=== PATIENT | male | born 1985 ===

== ENCOUNTER 2021-11-07 21:41 | Emergency (ER) | payer SELFPAY ==
--- OUTSIDE RECORDS SUMMARY | 2021-11-07 21:46 | XMS REPORT | Continuity of Care Document ---
:1985 Author Organization [facility] t Address [address] [place] [address] Care Team Providers Name Role Phone PCP, PATIENT DOES NOT HAVE A Primary Care Physician Unavaila Brandyn Brewer Attending Clinician Unavailable EUSEBIO ARANDA Attending Clinician Unavailable Caro Rivas DO Attending Clinician CARO RIVAS Attending Clinician Unavailable LEW GORDON Attending Clinician Unavailable REYNA YING Attending Clinician Unavailable NATE KNOX Attending Clinician Unavailable Physician, No Primary or Family Admitting Clinician UnavailCARO Matos Admitting Clinician Unavailable Payers Payer Name Policy Type Policy Number Effective Date Expiration Date S ource Problems Condition Condition Condition Status Onset Resolution Last Treating Co mments Source Name Details Category Date Date Treatment Clinician Date Subarachno Subarachno Disease Active U nivers id id 8-16 [place] [facility] Other, Other, Disease Active Univers mixed, or mixed, or 16 it[place] of unspecifie [place] Medical nondepende nondepende Br anch nt drug nt drug abuse, abuse, unspecifie unspecifie d d Alcohol Alcohol Disease Active Univers abuse, abuse, 16 ity of episodic episodic 00:00: [place] 00 Medical Branch Orbital Orbital Disease Active Univers edema or edema or 16 [place] Allergies, Adverse Reactions, Alerts Allergy Allergy Status Severity Reaction(s) Onset Inactive Treating Comm ents Source Name Type Date Date Clinician emely FA Active U UNKNOWN [facility] nt 07-18 [place] 00:00: [facility] 00 are [place] Cat Propensi Active Other - See Uni vers Dander ty to comments 2-16 ity of adverse 00:00: [place] reaction 00 Medical s Branch Dog Propensi Active Other - See Uni vers Dander ty to comments 2-16 ity of adverse 00:00: [place] reaction 00 Medical s Branch CAT DRUG Active Other-Cmnt Univer s DANDER INGREDI 2-16 ity of 00:00: [place] 00 Medical Branch DOG DRUG Active Other-Cmnt Univer s DANDER INGREDI 2-16 ity of 00:00: [place] 00 Medical Branch Social History Social Habit Start Date Stop Date Quantity Comments Source History of Cigarette Smoker Universi ty of tobacco use [facility] Exposure to 2021-07-07 2021-07-17 Not sure [facility] SARS-CoV-2 00:00:00 20:45:00 [facility] (event) Branch Alcohol intake 2007-11-09 2007-11-09 Current drinker Unive rsity of 00:00:00 00:00:00 of alcohol [facility] (finding) Branch Sex Ass[birth year] At [birth year] Universit y of 00:00:00 00:00:00 [facility] Smoking Status Start Date Stop Date Source Current every day smoker Univers ity of [facility] Branch Medications Ordered Filled Start Stop Current Ordering Indication Dosage Frequency Signature Comments Components Source Medication Medication Date Date Medication? Clinician (SIG) Name Name acetaminoph 1000mg 1,000 mg, [facility] en 07-18 Oral, ity of (TYLENOL) 04:00: 03:03 ONCE[place] dose, On Medical 1,000 mg [place] 07/17/21 at 2300, FANTASMA naproxen 2017-0 Yes 500mg Take 1 [facility] s (NAPROSYN) 4-16 tablet by ity of 500 mg 00:00: mouth 2 [place] tablet 00 (two) Medical times [place] daily with meals. Vital Signs Vital Name Observation Time Observation Value Comments Source Systolic blood 2021-07-18 03:00:00 111 mm[facility]Hg[facility] Diastolic blood 2021-07-18 03:00:00 83 mm[Hg] [facility] Heart rate 2021-07-18 03:00:00 91 /min [facility] Respiratory rate 2021-07-18 03:00:00 16 /min [facility] Oxygen saturation in 2021-07-18 03:00:00 97 /min [facility] Arterial blood by [facility] Pulse oximetry [place] Body temperature 2021-07-18 01:40:00 36.67 [place] [facility] Procedures Procedure Date / Time Performed Performing Clinician Sourc e CT 2021-07-18 02:28:19 Caro Rivas [facility] MAXILLOFACIAL/MANDIBL Medical Br anch E WO CONTRAST CT TRAUMA HEAD WO 2021-07-18 02:28:19 Caro Rivas [facility] CONTRAST Medical Branch CT TRAUMA CERVICAL 2021-07-18 02:28:[address] [facility] SPINE CONTRAST Medical Branch Encounters Start End Encounter Admission Attending Care Care Encounter Source Date/Time Date/Time Type Type Clinicians Facility Department ID 2021-07-18 2021-07-18 Emergency EM MORENITA Staples [id number] [facility] 14:35:00 17:50:00 Brandyn [id number] [facility] 2021-07-18 2021-07-18 Emergency EM MORENITA Staples [id number] [facility] 14:35:00 17:50:00 Brandyn 30 [facility] 2021-07-18 2021-07-18 Emergency E MANOJ EUSEBIO [facility] [address] [facility] 12:54:00 13:19:00 2021-07-17 2021-07-18 Emergency Evelyn [facility] [id number] Univers 20:50:00 00:05:00 Caro ROJAS [id number] [facility] [id number] [facility] [id number] [place] [address] Branch 2021-07-17 2021-07-18 Emergency X EVELYN [facility] ERT [id number] Univers 20:50:00 00:05:[address] [facility] 2020-12-28 2020-12-29 Emergency E EVAN [facility] [id number] [facility] 20:38:00 02:00:00 LEW 2020-06-16 2020-06-16 Emergency E REYNA YING [facility] [address] [facility] 13:11:00 15:33:00 2020-06-12 2020-06-12 Emergency X ABILIO [facility] ERT [id number] Univers 06:26:00 06:26:[address] [facility] Results Test Description Test Time Test Comments Results Result [facility] e Comments - CT HEAD/BRAIN 2021-07-18 W/O CONT 17:21:00 [facility]: BI [facility] : 1985 Sex: M Patie nt Name: BI WHEATLEY Unit No: [id number] EXAMS: CPT CODE: [id number] CT HEAD/BRAIN W/O CONT 35990 EXAMINATIONS: - CT ORBIT/SELLA/IAC WO, - CT HEAD/BRAIN W/O CONT INDICATION: left orbit tenderness, head pain COMPARISON: None available at time of dictation LOCATION: W1 TECHNIQUE: Noncontrast head CT was performed. Noncontrast orbits CT was performed. Sagittal and coronal reformatted images were created for each exam. This exam was performed according to our departmental dose optimization program, which includes automated exposure control, adjustment of the mA and/or kV according to patient size, and/or use of iterative reconstruction technique. DLP: 533 mGy-cm. FINDINGS: HEAD: Encephalomalacic change along orbital aspects of bilateral frontal lobes likely representing previous cerebral contusions. No mass effect, intracranial hemorrhage, or CT evidence of acute cortical infarction. No calvarial fracture is identified. Facial/sinus findings as below. ORBITS: 7 mm inferior displacement of fracture fragment from inferior/medial wall of left orbit. Inferior rectus muscle extends into the defect but does not appear impinged by osseous structures. Associated air-fluid level in the left maxillary sinus and associated soft tissue swelling and gas around the orbit. There is also a small amount of gas tracking lateral to the lateral rectus muscle. Retrobulbar fat appears preserved. Globes appear intact. Paranasal soft tissue swelling with likely minimally displaced bilateral nasal bone fractures. IMPRESSION: No acute intracranial abnormality identified. Encephalomalacic change of the orbital aspects of the frontal lobes likely representing prior cerebral contusions. Displaced fracture of inferior/medial wall of left orbit with associated periorbital soft tissue gas as well as small amount of gas tracking lateral to the lateral rectus muscle. Nasal bone fractures. 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 [address] : 1985 Age: 35 [place]: [place] [phone] Loc: [facility] Exam Date: 07/18/2021 Status: REG ER PH: FAX: PAGE 1 Signed Report (CONTINUED) Patient Name: BI WHEATLEY Unit No: [id number] EXAMS: CPT CODE: [id number] CT HEAD/BRAIN W/O CONT 97502 <Continued> at 1721 Reported and signed by: Yaya Morel MD CC: Self Referred; Brandyn Staples MD; Aicha Coe NP Technologist: Severo Cuevas; Billie Stevenson CTDI: 20.74 DLP: 533.2 Trscr Dt/Tm: 07/18/2021 (172) by:[email or web address] Electronic Signature Date/Time: 07/18/2021 (172)Orig Print D/T: S: 07/18/2021 (172) Name: BI WHEATLEY [facility] [place] Phys: [place] [address] : 1985 Age: 35 Sex: [place] [phone] Loc: [place] Exam Date: 07/18/2021 Status: REG ER PH: FAX: PAGE 2 Signed Report - CT 2021-07-18 ORBIT/SELLA/IAC WO 17:21:00 [facility]: BI [facility] : 1985 Sex: M Patie nt Name: BI WHEATLEY Unit No: [id number] EXAMS: CPT CODE: [id number] CT ORBIT/SELLA/[place] [id number] EXAMINATIONS: - CT ORBIT/SELLA/IAC WO, - CT HEAD/BRAIN W/O CONT INDICATION: left orbit tenderness, head pain COMPARISON: None available at time of dictation LOCATION: W1 TECHNIQUE: Noncontrast head CT was performed. Noncontrast orbits CT was performed. Sagittal and coronal reformatted images were created for each exam. This exam was performed according to our departmental dose optimization program, which includes automated exposure control, adjustment of the mA and/or kV according to patient size, and/or use of iterative reconstruction technique. DLP: 533 mGy-cm. FINDINGS: HEAD: Encephalomalacic change along orbital aspects of bilateral frontal lobes likely representing previous cerebral contusions. No mass effect, intracranial hemorrhage, or CT evidence of acute cortical infarction. No calvarial fracture is identified. Facial/sinus findings as below. ORBITS: 7 mm inferior displacement of fracture fragment from inferior/medial wall of left orbit. Inferior rectus muscle extends into the defect but does not appear impinged by osseous structures. Associated air-fluid level in the left maxillary sinus and associated soft tissue swelling and gas around the orbit. There is also a small amount of gas tracking lateral to the lateral rectus muscle. Retrobulbar fat appears preserved. Globes appear intact. Paranasal soft tissue swelling with likely minimally displaced bilateral nasal bone fractures. IMPRESSION: No acute intracranial abnormality identified. Encephalomalacic change of the orbital aspects of the frontal lobes likely representing prior cerebral contusions. Displaced fracture of inferior/medial wall of left orbit with associated periorbital soft tissue gas as well as small amount of gas tracking lateral to the lateral rectus muscle. Nasal bone fractures. Name: BI WHEATLEY [facility] [place]: [place] [address] : 1985 Age: 35 [place]: [place] [phone] [facility] Exam Date: 07/18/2021 Status: REG ER PH: FAX: PAGE 1 Signed Report (CONTINUED) Patient Name: BI WHEATLEY Unit No: [id number] EXAMS: CPT CODE: [id number] CT ORBIT/SELLA/[place] [address] <Continued> at 1721 Reported and signed by: Yaya Morel MD CC: Self Referred; Brandyn Staples MD; Aicha Coe NP Technologist: Severo Stevenson CTDI: 9.24 DLP: 533.2 Trscr Dt/Tm: 07/18/2021 (172) by:[email or web address] Electronic Signature Date/Time: 07/18/2021 (1721)Orig Print D/T: S: 07/18/2021 (0509) Name: BI WHEATLEY [facility] [place]: [place] [address] : 1985 Age: 35 [place]: [place] [phone] Loc: [place] Exam Date: 07/18/2021 Status: REG ER PH: FAX: PAGE 2 Signed Report
== END 2021-11-07 22:32 | disposition left against medical advice (07) ==
LOC: ER 21:41
DX: Z02.9 Encounter for administrative examinations, unspecified (principal)